=== PATIENT | female | born 1995 | race Caucasian/White ===

== ENCOUNTER 2018-12-29 12:30 | Inpatient (IN) | payer OTHER ==
[~2018-12-29] VITALS: Ht 175.3 cm; Wt 92.7 kg
[2018-12-29] MEDS ORDERED: SOD CHLORIDE 0.9% 1,000 ML IV STA (12:52)
[2018-12-29] MEDS ORDERED: SOD CHLORIDE 0.9% 0 ML IV ONE (13:21)
[2018-12-29] MEDS ORDERED: ACETAMINOPHEN 325 MG TAB PO PRN (14:00)
[2018-12-29] MEDS ORDERED: ONDANSETRON 4 MG INJ IV PRN (14:00)
--- NOTE | 2018-12-29 15:34 | ERD ---
ER Documentation Chief Complaint Chief Complaint near syncope while at work @ 1200, dizziness; heavy menstrual cycle HPI Patient is a 23-year-old female with asthma and fibroids who presents after she passed out at work. She said that she passed out around 12 PM. She is having a heavy periods and she said that it came early as her last mental period was December 04-. She said that yesterday she was in the shower and had about an hour of continuous bleeding. Upon review of old medical records this is the patient's fifth visit to the ER since 2006. She does not currently have a primary doctor and does not have a medical record librarians teacher. ROS All systems reviewed and are negative except as per history of present illness. Medications Home Meds No Active Prescriptions or Reported Meds Allergies Allergies: Coded Allergies: No Known Allergy (Unverified , 12/29/18) PMhx/Soc History of Surgery: Yes (APPENDECTOMY) Anesthesia Reaction: No Hx Neurological Disorder: No Hx Respiratory Disorders: Yes (ASTHMA) Hx Cardiac Disorders: No Hx Psychiatric Problems: No Hx Miscellaneous Medical Probl: No (Fibroids) Hx Alcohol Use: No Hx Substance Use: No Hx Tobacco Use: No Smoking Status: Never smoker FmHx Family History: No diabetes Physical Exam Vitals Vital Signs Date Temp Pulse Resp B/P (MAP) Pulse Ox O2 O2 Flow FiO2 Time Delivery Rate 12/29/18 98.5 79 17 107/61 100 Room Air 14:50 (76) 12/29/18 98.5 88 16 105/71 100 Room Air 14:35 (82) 12/29/18 98.2 82 22 101/69 100 Room Air 14:05 (80) 12/29/18 98.0 83 20 113/72 100 Room Air 13:00 (86) 12/29/18 98.0 89 20 138/80 100 12:40 (99) Physical Exam Const: Moderate distress Head: Atraumatic Eyes: Normal Conjunctiva ENT: Normal External Ears, Nose and Mouth. Neck: Full range of motion. No meningismus. Resp: Clear to auscultation bilaterally Cardio: Regular rate and rhythm, no murmurs Abd: Soft, non tender, non distended. Normal bowel sounds Skin: Pale skin Back: No midline or flank tenderness Ext: No cyanosis, or edema Neur: Awake and alert Psych: Normal Mood and Affect Result Diagram: 12/29/18 1258 12/29/18 1258 Results 24 hrs Laboratory Tests Test 12/29/18 12:58 12/29/18 13:19 White Blood Count 7.7 10^3/ul Red Blood Count 3.13 10^6/ul Hemoglobin 5.4 g/dl Hematocrit 20.5 % Mean Corpuscular Volume 65.5 fl Mean Corpuscular Hemoglobin 17.3 pg Mean Corpuscular Hemoglobin Concent 26.3 g/dl Red Cell Distribution Width 19.9 % Platelet Count 324 10^3/UL Mean Platelet Volume 11.0 fl Immature Granulocytes % 0.400 % Neutrophils % % Segmented Neutrophils % (Manual) 54 % Lymphocytes % % Lymphocytes % (Manual) 40 % Monocytes % % Monocytes % (Manual) 3 % Eosinophils % % Eosinophils % (Manual) 2 % Basophils % % Basophils % (Manual) 1 % Nucleated Red Blood Cells % 0.0 /100WBC Immature Granulocytes # 0.030 10^3/ul Neutrophils # 10^3/ul Lymphocytes (Manual) 3.0 10^3/ul Lymphocytes # 10^3/ul Monocytes # 10^3/ul Monocytes # (Manual) 0.2 10^3/ul Eosinophils # 10^3/ul Basophils # 10^3/ul Basophils # (Manual) 0.0 10^3/ul Nucleated Red Blood Cells # 10^3/ul Platelet Estimate NORMAL Polychromasia 3+ Hypochromasia 3+ Poikilocytosis 2+ Anisocytosis 3+ Microcytosis 3+ Tear Drop Cells 1+ Ovalocytes 2+ Elliptocytes 2+ Sodium Level 140 mmol/L Potassium Level 3.7 mmol/L Chloride Level 107 mmol/L Carbon Dioxide Level 24 mmol/L Anion Gap 9 Blood Urea Nitrogen 13 mg/dl Creatinine 0.66 mg/dl Est Glomerular Filtrat Rate mL/min > 60 mL/min Glucose Level 96 mg/dl Calcium Level 9.3 mg/dl Troponin I < 0.012 ng/ml Serum HCG, Qualitative NEGATIVE Bedside Glucose 95 mg/dL Current Medications Medications Dose Sig/Marciano Start Time Status Last (Trade) Ordered Route PRN Stop Time Admin Dose Reason Admin Sodium 1,000 ml @ Q1H STAT 12/29/18 DC 12/29/18 Chloride 1,000 mls/hr IV 12:52 12/29/18 13:06 13:51 Sodium 0 ml @ 0 Q0M ONCE 12/29/18 DC Chloride mls/hr IV 13:21 12/29/18 13:22 Ondansetron 4 mg ER BRIDGE 12/29/18 HCl (Zofran PRN IV 14:00 12/30/18 Inj) NAUSEA/VOMITI 13:59 NG 650 mg ER BRIDGE 12/29/18 Acetaminophen PRN PO 14:00 12/30/18 (Tylenol .MILD PAIN 13:59 Tab) 1-3 OR TEMP Procedures/MDM EKG read by me: Rate/Rhythm: Regular rate and rhythm at a normal rate Intervals: Normal Impression: No evidence of ischemia or arrhythmia Patient is a 23-year-old female who presents with syncope. She was found to have acute anemia with a hemoglobin of 5.4 and will be transfused 2 units of packed red blood cells and given 1 L of normal saline for fluid resuscitation. I believe this is likely dysfunctional uterine bleeding with fibroids. The pa tient is not I doubt or ectopic . Other laboratory studies are basically normal. The patient will be admitted to Dr. Rodriguez from gynecology who is the medical record librarians teacher corporate responsibility officer. She will be admitted to a telemetry bed for syncope. Critical Care: Time: 35 minutes excluding all billable procedures. Treatments/Evaluations: Close monitoring and treatment of unstable vital signs, cardiorespiratory, and neurologic status, while maintaining tight balance of fluid, respiratory, and cardiac interventions. Departure Diagnosis: Primary Impression: Anemia Anemia type: unspecified type Qualified Codes: D64.9 - Anemia, unspecified Additional Impressions: Dysfunctional uterine bleeding Dizziness Condition: Serious RAEGAN RAE MD Dec 29, 2018 15:34
[2018-12-29] MEDS ORDERED: ONDANSETRON 4 MG INJ IV STA (15:59)
[2018-12-29] MEDS ORDERED: OXYCODONE/ACETAMINOPHEN (5/325) TAB PO PRN (23:30)
[2018-12-29] MEDS ORDERED: IBUPROFEN 600 MG TAB PO PRN (23:30)
[2018-12-29 23:40] VITALS: Ht 175.3 cm; Wt 92.7 kg
[2018-12-29] MEDS: OXYCODONE/ACETAMINOPHEN (5/325) TAB PO PRN (23:42)
[2018-12-30] MEDS ORDERED: ONDANSETRON 4 MG INJ IV PRN
[2018-12-30 00:06] VITALS: BP 100/59; RESP 20
--- NOTE | 2018-12-30 01:52 | CONS ---
Assessment/Plan Assessment/Plan Assessment/Plan (Daily) 1.Abnormal Uterine Bleeding 2.Fibroids 3.Severe Anemia Transfuse PRBCs Pain meds as needed Consultation Date/Type/Reason Admit Date/Time Dec 29, 2018 at 13:47 Date of Consultation: Dec 30, 2018 Type of Consult Gynecology Reason for Consultation Abnormal Uterine Bleeding Fibroids Date/Time of Note DATE: 12/30/18 TIME: 01:50 Hx of Present Illness Patient is a 23-year-old female with known fibroids since Aug 2018 presents after passing out at work around 12 PM. LMP December 04, 2018 She said that yesterday she was in the shower and had about an hour of co ntinuous bleeding. She reports hx of heavy periods. She does not currently have a primary doctor and does not have a internal corrosion specialist. Constitutional: no complaints, improved Eyes: no complaints ENT: no complaints Respiratory: no complaints Cardiovascular: no complaints Gastrointestinal: no complaints, pain (Abdominal and pelvic pain) Genitourinary: no complaints Musculoskeletal: no complaints Skin: no complaints Neurologic: no complaints Endocrine: no complaints Lymphatic: no complaints Psychological: no complaints, nl mood/affect Immunologic: no complaints Past Medical History Medical History: other (Asthma) Home Meds No Active Prescriptions or Reported Meds Medications Current Medications Ondansetron HCl (Zofran Inj) 4 mg ER BRIDGE PRN IV NAUSEA/VOMITING; Start 12/29/18 at 14:00; Stop 12/30/18 at 13:59 Acetaminophen (Tylenol Tab) 650 mg ER BRIDGE PRN PO .MILD PAIN 1-3 OR TEMP; Start 12/29/18 at 14:00; Stop 12/30/18 at 13:59 Oxycodone/ Acetaminophen (Percocet (5/ 325)) 2 tab Q6H PRN PO PAIN LEVEL 7-10 Last administered on 12/29/18at 23:42; Admin Dose 2 TAB; Start 12/29/18 at 23:30 Oxycodone/ Acetaminophen (Percocet (5/ 325)) 1 tab Q6H PRN PO MODERATE PAIN LEVEL 4-6; Start 12/29/18 at 23:30 Ibuprofen (Motrin) 600 mg Q6H PRN PO MILD PAIN LEVEL 1-3; Start 12/29/18 at 23:30 Ondansetron HCl (Zofran Inj) 4 mg Q6H PRN IV NAUSEA AND/OR VOMITING; Start 12/30/18 at 00:00 Allergies: Coded Allergies: No Known Allergy (Unverified , 12/29/18) Past Surgical History Past Surgical Hx: appendectomy Family History Significant Family History: no pertinent family hx Social History Alcohol Use: none Smoking Status: Never smoker Drug Use: none Exam/Review of Systems Exam Vitals Vital Signs Date Temp Pulse Resp B/P (MAP) Pulse Ox O2 O2 Flow FiO2 Time Delivery Rate 12/30/18 99.4 20 100/59 99 00:06 (73) 12/29/18 78 Room Air 19:16 Intake and Output 12/29/18 12/29/18 12/30/18 1515:00 23:00 07:00 IntakeIntake Total 700 ml BalanceBalance 700 ml Constitutional: alert, oriented, well developed Psych: no complaints, nl mood/affect Head: normocephalic, atraumatic Eyes: nl conjunctiva, EOMI, nl lids, nl sclera, PERRL ENMT: nl external ears & nose, nl lips & teeth, nl nasal mucosa & septum Neck: supple, non-tender Respiratory: clear to auscultation, normal air movement Cardiovascular: regular rate and rhythm, nl pulses Gastrointestinal: soft, nl liver, spleen, non-tender Genitourinary - Female: other (heavy vaginal bleeding ) Musculoskeletal: nl extremities to inspection, nl gait and stance Extremities: normal pulses Neurological: SUPERVISOR INCISING II-XII intact, nl mental status, nl speech, nl strength Skin: nl turgor; No rash or lesions Lymph: nl lymph nodes Results Result Diagram: 12/30/18 0038 12/29/18 1258 Results 24hrs Laboratory Tests Test 12/29/18 12:58 12/29/18 13:19 12/30/18 00:38 White Blood Count 7.7 7.5 Red Blood Count 3.13 L 3.23 L Hemoglobin 5.4 *L 6.5 #*L Hematocrit 20.5 L 22.6 L Mean Corpuscular Volume 65.5 L 70.0 L Mean Corpuscular Hemoglobin 17.3 L 20.1 L Mean Corpuscular Hemoglobin Concent 26.3 L 28.8 L Red Cell Distribution Width 19.9 H 22.6 H Platelet Count 324 267 Mean Platelet Volume 11.0 H Immature Granulocytes % 0.400 0.500 H Neutrophils % Segmented Neutrophils % (Manual) 54 Lymphocytes % Lymphocytes % (Manual) 40 Monocytes % Monocytes % (Manual) 3 Eosinophils % Eosinophils % (Manual) 2 Basophils % Basophils % (Manual) 1 Nucleated Red Blood Cells % 0.0 0.0 Immature Granulocytes # 0.030 0.040 H Neutrophils # Lymphocytes (Manual) 3.0 H Lymphocytes # Monocytes # Monocytes # (Manual) 0.2 L Eosinophils # Basophils # Basophils # (Manual) 0.0 Nucleated Red Blood Cells # Platelet Estimate NORMAL Polychromasia 3+ Hypochromasia 3+ Poikilocytosis 2+ Anisocytosis 3+ Microcytosis 3+ Tear Drop Cells 1+ Ovalocytes 2+ Elliptocytes 2+ Sodium Level 140 Potassium Level 3.7 Chloride Level 107 Carbon Dioxide Level 24 Anion Gap 9 Blood Urea Nitrogen 13 Creatinine 0.66 Est Glomerular Filtrat Rate mL/min > 60 Glucose Level 96 Calcium Level 9.3 Troponin I < 0.012 Serum HCG, Qualitative NEGATIVE Bedside Glucose 95 Imaging Imaging PELVIC ULTRASOUND IMPRESSION: 1. Enlarged heterogeneous uterus containing multiple fibroids the largest measuring 8.8 x 7.1 cm. 2. Left ovarian cyst measuring 1.7 x 1.2 cm. 3. Small amount of free fluid in the right adnexa. 4. No evidence of ovarian torsion. Medications Medication Current Medications Ondansetron HCl (Zofran Inj) 4 mg ER BRIDGE PRN IV NAUSEA/VOMITING; Start 12/29/18 at 14:00; Stop 12/30/18 at 13:59 Acetaminophen (Tylenol Tab) 650 mg ER BRIDGE PRN PO .MILD PAIN 1-3 OR TEMP; Start 12/29/18 at 14:00; Stop 12/30/18 at 13:59 Oxycodone/ Acetaminophen (Percocet (5/ 325)) 2 tab Q6H PRN PO PAIN LEVEL 7-10 Last administered on 12/29/18at 23:42; Admin Dose 2 TAB; Start 12/29/18 at 23:30 Oxycodone/ Acetaminophen (Percocet (5/ 325)) 1 tab Q6H PRN PO MODERATE PAIN LEVEL 4-6; Start 12/29/18 at 23:30 Ibuprofen (Motrin) 600 mg Q6H PRN PO MILD PAIN LEVEL 1-3; Start 12/29/18 at 23:30 Ondansetron HCl (Zofran Inj) 4 mg Q6H PRN IV NAUSEA AND/OR VOMITING; Start 12/30/18 at 00:00 ARCHIE DELAROSA MD Dec 30, 2018 01:52
[2018-12-30 02:37] VITALS: BP 98/56
[2018-12-30] MEDS ORDERED: DIPHENHYDRAMINE 25 MG CAP ONE (03:22)
[2018-12-30] MEDS ORDERED: DIPHENHYDRAMINE 50 MG CAP PO ONE (03:30)
[2018-12-30] MEDS ORDERED: ACETAMINOPHEN 325 MG TAB PO ONE ×2 (03:30→05:00)
[2018-12-30] MEDS: LACTATED RINGER'S 1,000 ML IV SCH ×3 (03:30→14:45)
[2018-12-30] MEDS ORDERED: DIPHENHYDRAMINE 25 MG CAP PO ONE (05:00)
[2018-12-30 07:40] VITALS: BP 93/55; PULSE 71; RESP 18
[2018-12-30 14:15] VITALS: BP 102/66; PULSE 69; RESP 16
--- NOTE | 2018-12-30 17:50 | QN ---
Documentation Comment HD #1 for severe anemia and DUB due to multiple fibroids. Pt reports that the last Hgb of 6.5 was only after the 2nd unit of blood, not 4 units. She has had her period since 12/26 and it is slowing down a lot but she is still bleeding but no more clots. She feels better and gets up to void without a problem. Is NPO. T=98.2 BP 102/66 Abdomen soft, NT, no masses palpable. Hgb 5.4 on admit and 6.5 after 2 units of PRBC's P: Recheck the CBC tonight. Pt may eat a regular diet. Pt had an appt with lace finisher 12/28 but had to reschedule due to the heaviness of her periods. Told her she needs to get in to see her NELA as getting blood transfusions is NOT the answer to the problem. She should have a plan of action NELA to try to keep the next period from doing the same thing. Discussed a myomectomy vs medical therapy e.g. DepoProvera. MICHOACANO GARCIA MD Dec 30, 2018 17:50
[2018-12-30 20:00] VITALS: BP 109/56; PULSE 70; RESP 18
[2018-12-30] MEDS: OXYCODONE/ACETAMINOPHEN (5/325) TAB PO PRN (20:13)
[2018-12-31] MEDS: LACTATED RINGER'S 1,000 ML IV SCH ×4 (01:53→20:51)
[2018-12-31 02:00] VITALS: BP 95/52; PULSE 60; RESP 18
[2018-12-31 08:12] VITALS: BP 99/56; PULSE 62; RESP 17
[2018-12-31 14:20] VITALS: BP 110/69; PULSE 66; RESP 17
--- NOTE | 2018-12-31 18:31 | QN ---
Documentation Comment patient is stable afebrile No VB at this time VS stable Gen NAD Abd soft NT ND Genitalia No blood at perineum --->Possible discharge home tomorrow and follow up as outpatient DENNIS WHIPPLE M.D. Dec 31, 2018 18:31
[2018-12-31 20:00] VITALS: BP 111/63; PULSE 80; RESP 18
[2018-12-31] MEDS: OXYCODONE/ACETAMINOPHEN (5/325) TAB PO PRN (21:30)
[2019-01-01 02:00] VITALS: BP_SYST 115; BP_SYST 95; BP_DIAS 49; BP_DIAS 70; PULSE 66; RESP 18
[2019-01-01] MEDS: LACTATED RINGER'S 1,000 ML IV SCH ×2 (06:42→17:42)
[2019-01-01 08:05] VITALS: BP 88/52; PULSE 66; RESP 18
--- NOTE | 2019-01-01 11:35 | QN ---
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 Jan 01, 2019 11:35
--- NOTE | 2019-01-01 11:37 | DS ---
Date/Time of Note Date/Time of Note DATE: 01/01/19 TIME: 11:37 Discharge Summary Admission/Discharge Info Admit Date/Time Dec 29, 2018 at 13:47 Discharge Date/Time 01/01/2019 Discharge Diagnosis Anemia,Fibroid uterus Patient Condition: Good Hospital Course uneventful Home Meds No Active Prescriptions or Reported Meds Primary Care Provider Care Physician No Primary DENNIS WHIPPLE M.D. Jan 01, 2019 11:37
[2019-01-01 11:40] VITALS: BP 119/62; PULSE 73; RESP 18
[2019-01-01] MEDS: OXYCODONE/ACETAMINOPHEN (5/325) TAB PO PRN (11:41)
== END 2019-01-01 18:33 | disposition home or self-care (01) | DRG 812 ==
LOC: E/R 12:30 → PP2 13:47 → EDBEDREQSVC 19:35 → EDBEDREQ 19:35 → EDBEDREQTM 19:35
PROVIDERS: ADMIT Obstetrics & Gynecology; ATTEND Obstetrics & Gynecology
PROC: 30233N1 Transfusion of Nonautologous Red Blood Cells into Peripheral Vein, Percutaneous Approach (ICD-10-PCS; principal; 2018-12-29)
DX: D64.9 Anemia, unspecified (principal); N93.8 Other specified abnormal uterine and vaginal bleeding; J45.909 Unspecified asthma, uncomplicated; D25.9 Leiomyoma of uterus, unspecified
CPT/HCPCS: 36415; 36430; 76856; 80048; 82962; 84484; 84703; 85025; 86850; 86900; 86901; 86920; 93005; J2405; J7030; J7040; J7120; P9016

== ENCOUNTER 2019-01-04 20:14 | Inpatient (IN) | payer OTHER ==
[~2019-01-04] VITALS: Ht 175.3 cm; Wt 90.0 kg
[2019-01-04] MEDS ORDERED: morphine 4 MG/ML VIAL IV STA (21:36)
[2019-01-04] MEDS ORDERED: ONDANSETRON 4 MG INJ IV STA (21:36)
[2019-01-04] MEDS ORDERED: SOD CHLORIDE 0.9% 0 ML IV ONE (22:44)
--- NOTE | 2019-01-04 23:12 | ERD ---
ER Documentation Chief Complaint Chief Complaint VAGINAL BLEEDING FOR THE PAST WEEK NOT . INTERMITTENT ABD PAIN HPI 23-year-old female with recent hospitalization secondary to menorrhagia, anemia requiring transfusion and fibroid uterus. The patient presents with persistent vaginal bleeding. She is now soaking 3 pads per hour. She describes generalized weakness and lightheadedness. No chest pain and no shortness of br eath. Mild abdominal cramping is noted. ROS All systems reviewed and are negative except as per history of present illness. Medications Home Meds No Active Prescriptions or Reported Meds Allergies Allergies: Coded Allergies: No Known Allergy (Unverified , 12/29/18) PMhx/Soc History of Surgery: Yes (Appendectomy at 4y/o) Anesthesia Reaction: No Hx Neurological Disorder: No Hx Respiratory Disorders: Yes (Asthma) Hx Cardiac Disorders: No Hx Psychiatric Problems: No Hx Miscellaneous Medical Probl: Yes (uterine fibroid) Hx Alcohol Use: No Hx Substance Use: No Hx Tobacco Use: No Smoking Status: Never smoker FmHx Family History: No diabetes Physical Exam Vitals Vital Signs Date Temp Pulse Resp B/P (MAP) Pulse Ox O2 O2 Flow FiO2 Time Delivery Rate 01/04/19 74 16 117/59 100 Room Air 21:35 (78) 01/04/19 98.5 85 18 115/58 99 20:25 (77) Physical Exam General: Well developed, well nourished, no acute distress, pallor noted Head: Normocephalic, atraumatic. Eyes: Pupils equally reactive, EOM intact ENT: Moist mucous membranes Neck: Supple, no lymphadenopathy Respiratory: Lungs clear bilaterally, no distress Cardiovascular: RRR, no murmurs, rubs, or gallops Abdominal: Soft, non-tender, non-distended, no peritoneal signs : Deferred MSK: No edema, no unilateral swelling, 5/5 strength Neurologic: Alert and oriented, moving all extremities, normal speech, no focal weakness, no cerebellar signs Skin: No rash Psych: Normal mood Result Diagram: 01/04/19215001/04/192150 Results 24 hrs Laboratory Tests Test 01/04/19 21:51 01/04/19 22:00 White Blood Count 8.7 10^3/ul Red Blood Count 2.72 10^6/ul Hemoglobin 6.0 g/dl Hematocrit 20.7 % Mean Corpuscular Volume 76.1 fl Mean Corpuscular Hemoglobin 22.1 pg Mean Corpuscular Hemoglobin Concent 29.0 g/dl Red Cell Distribution Width 24.8 % Platelet Count 272 10^3/UL Mean Platelet Volume 11.0 fl Immature Granulocytes % 0.500 % Neutrophils % % Lymphocytes % % Monocytes % % Eosinophils % % Basophils % % Nucleated Red Blood Cells % 0.0 /100WBC Immature Granulocytes # 0.040 10^3/ul Neutrophils # 10^3/ul Lymphocytes # 10^3/ul Monocytes # 10^3/ul Eosinophils # 10^3/ul Basophils # 10^3/ul Nucleated Red Blood Cells # 10^3/ul Prothrombin Time 15.0 Sec Prothrombin Time Ratio 1.2 INR International Normalized Ratio 1.17 Activated Partial Thromboplast Time 30.2 Sec Sodium Level 140 mmol/L Potassium Level 4.3 mmol/L Chloride Level 106 mmol/L Carbon Dioxide Level 26 mmol/L Anion Gap 8 Blood Urea Nitrogen 15 mg/dl Creatinine 0.76 mg/dl Est Glomerular Filtrat Rate mL/min > 60 mL/min Glucose Level 99 mg/dl Calcium Level 8.9 mg/dl POC Beta HCG, Qualitative NEGATIVE Current Medications Medications Dose Sig/Marciano Start Time Status Last (Trade) Ordered Route PRN Stop Time Admin Dose Reason Admin Morphine 4 mg ONCE STAT 01/04/19 DC 01/04/19 Sulfate IV 21:36 22:07 (morphine) 01/04/19 21:37 Ondansetron 4 mg ONCE STAT 01/04/19 DC 01/04/19 HCl (Zofran IV 21:36 22:07 Inj) 01/04/19 21:37 Sodium 0 ml @ 0 Q0M ONCE 01/04/19 DC Chloride mls/hr IV 22:44 01/04/19 22:45 Procedures/MDM LAB INTERPRETATION: I reviewed the laboratory testing and it shows hemoglobin of 6 MEDICAL DECISION MAKING: Patient presents with likely symptomatic anemia secondary to menorrhagia. The patient was currently initiated on oral contraceptives but has persistent bleeding. Patient likely warrants inpatient hospitalization for further monitoring, blood transfusion. ER COURSE: * I discussed with the patient and/or family the risks, benefits, alternatives of blood transfusion. This includes allergic reaction and infections including HIV and hepatitis. The patient and/or family were able to verbalize these risks, stated understanding. A document has been signed and placed in the chart. * 2 units of packed red blood cells have been ordered for the patient. She is hemodynamically stable. Pain well controlled. * Dr. Rodriguez, on-call for MOTOR VEHICLE TECHNICIAN was notified of admission. CONSULTATION: [None] DISPOSITION PLAN: Accepting care team and consultations: I discussed the current laboratory data, diagnostic imaging and emergency care provided. Admitting team: Dr. Rodriguez Admitting team indication: Insurance directed Departure Diagnosis: Primary Impression: Menorrhagia Menorrahagia type: with regular cycle Qualified Codes: N92.0 - Excessive and frequent menstruation with regular cycle Additional Impressions: Symptomatic anemia Uterine fibroid Uterine leiomyoma location: unspecified location Qualified Codes: D25.9 - Leiomyoma of uterus, unspecified Condition: Stable GILBERT MINA MD Jan 04, 2019 23:12
[2019-01-04] MEDS ORDERED: ONDANSETRON 4 MG INJ IV PRN (23:30)
[2019-01-04] MEDS ORDERED: ACETAMINOPHEN 325 MG TAB PO PRN (23:30)
[2019-01-05 01:45] VITALS: BP 108/54; PULSE 89; RESP 20
[2019-01-05 01:56] VITALS: Ht 175.3 cm; Wt 90.0 kg
[2019-01-05 07:49] VITALS: BP 112/60; PULSE 67; RESP 18
--- NOTE | 2019-01-05 12:37 | HP ---
Date/Time of Note Date/Time of Note DATE: 01/05/19 TIME: 12:14 Assessment/Plan VTE Prophylaxis Risk score (from Nsg)>0 risk: 0 SCD applied (from Nsg): No SCD contraindicated: other Pharmacological prophylaxis: other Lines/Catheters IV Catheter Type (from Nrsg): Peripheral IV Urinary Cath still in place: No Assessment/Plan Assessment/Plan A menometrorrhagia secondary uterine fibroids severe anemia P blood transfusion f/u by her ADMIRALTY LAWYER on 01/09/19 she has appointment recommend for poss myomectmy even optional but considering her n ulligravida status, not recommend,as first choice most likely progesterone injection or GnRH an alogs . will discharge home after 2more units of RBC transfusion Result Diagram: 01/05/1982101/04/191 Results 24hrs Laboratory Tests Test 01/04/19 21:51 01/04/19 22:00 01/05/19 08:22 White Blood Count 8.7 # Red Blood Count 2.72 #L Hemoglobin 6.0 #*L 7.8 #L Hematocrit 20.7 #L 24.9 #L Mean Corpuscular Volume 76.1 L Mean Corpuscular Hemoglobin 22.1 L Mean Corpuscular Hemoglobin Concent 29.0 L Red Cell Distribution Width 24.8 H Platelet Count 272 Mean Platelet Volume 11.0 H Immature Granulocytes % 0.500 H Neutrophils % Lymphocytes % Monocytes % Eosinophils % Basophils % Nucleated Red Blood Cells % 0.0 Immature Granulocytes # 0.040 H Neutrophils # Lymphocytes # Monocytes # Eosinophils # Basophils # Nucleated Red Blood Cells # Prothrombin Time 15.0 H Prothrombin Time Ratio 1.2 INR International Normalized Ratio 1.17 Activated Partial Thromboplast Time 30.2 Sodium Level 140 Potassium Level 4.3 Chloride Level 106 Carbon Dioxide Level 26 Anion Gap 8 Blood Urea Nitrogen 15 Creatinine 0.76 Est Glomerular Filtrat Rate mL/min > 60 Glucose Level 99 Calcium Level 8.9 POC Beta HCG, Qualitative NEGATIVE HPI/ROS Admit Date/Time Admit Date/Time Jan 04, 2019 at 23:22 Hx of Present Illness 23y.o nulligravida presents ED again for heavy vaginal bleeding after being discharged on 12/30/18 by our colleague who recommended to be f/u by her ADMIRALTY LAWYER .after blood transfusion. But patient returned to ED with heavy vaginal bleeding before she visited her ADMIRALTY LAWYER which suppose to be on 01/09/19. 2 units of RBC ordered by ER and sent to floor to be f/ued ROS vaginal bleeding with cramping Constitutional: no complaints, improved Eyes: no complaints ENT: no complaints Respiratory: no complaints Cardiovascular: no complaints Gastrointestinal: no complaints Genitourinary: bleeding Musculoskeletal: back pain Skin: no complaints Neurologic: no complaints Endocrine: no complaints Lymphatic: no complaints Psychological: no complaints PMH/Family/Social Past Medical History Medical History: no pertinent history, other (asthma) Medications Current Medications Ondansetron HCl (Zofran Inj) 4 mg BRIDGE ORDER PRN IV NAUSEA/VOMITING; Start 01/04/19 at 23:30; Stop 01/05/19 at 23:29 Acetaminophen (Tylenol Tab) 650 mg ER BRIDGE PRN PO .MILD PAIN 1-3 OR TEMP Last administered on 01/05/19at 11:36; Admin Dose 650 MG; Start 01/04/19 at 23:30; Stop 01/05/19 at 23:29 Coded Allergies: No Known Allergy (Unverified , 12/29/18) Past Surgical History Past Surgical Hx: appendectomy Family History Significant Family History: no pertinent family hx Social History Alcohol Use: none Smoking Status: Never smoker Drug Use: none Exam/Review of Systems Vital Signs Vitals Vital Signs Date Temp Pulse Resp B/P (MAP) Pulse Ox O2 O2 Flow FiO2 Time Delivery Rate 01/05/19 98.5 67 18 112/60 99 Room Air 07:49 (77) Intake and Output 01/04/19 01/04/19 01/05/19 1515:00 23:00 07:00 IntakeIntake Total 700 ml BalanceBalance 700 ml Exam Constitutional: alert, oriented, well developed Psych: no complaints, nl mood/affect Head: normocephalic, atraumatic Eyes: other (pale conjunctiva) ENMT: nl external ears & nose, nl lips & teeth, nl nasal mucosa & septum Neck: supple, non-tender Respiratory: clear to auscultation, normal air movement Cardiovascular: regular rate and rhythm, nl pulses Gastrointestinal: soft, nl liver, spleen, non-tender Genitourinary - Female: uterus (uterine fibroid intramural distorting the cavity per u/s on last visit on12/29/18) GEORGE MOORE MD Jan 05, 2019 12:25
[2019-01-05 13:36] VITALS: BP 107/58; PULSE 77; RESP 16
[2019-01-05] MEDS ORDERED: morphine 4 MG/ML VIAL IV STA (15:23)
[2019-01-05 20:00] VITALS: BP 101/60; RESP 18
[2019-01-05] MEDS ORDERED: OXYCODONE/ACETAMINOPHEN (5/325) TAB PO PRN (21:30)
[2019-01-05] MEDS ORDERED: IBUPROFEN 600 MG TAB PO PRN (21:30)
[2019-01-05] MEDS: OXYCODONE/ACETAMINOPHEN (5/325) TAB PO PRN (21:34)
[2019-01-06 02:13] VITALS: BP 95/61; PULSE 61; RESP 16
[2019-01-06] MEDS: OXYCODONE/ACETAMINOPHEN (5/325) TAB PO PRN ×2 (09:18→16:10)
[2019-01-06] MEDS ORDERED: MEDROXYPROGESTERONE 150 MG INJ SYG IM ONE (18:00)
[2019-01-06 19:50] VITALS: BP 104/58; PULSE 62; RESP 19
--- NOTE | 2019-01-06 21:28 | PD.PPDC ---
MANUFACTURING TEAM MEMBER Discharge Instruction Diagnosis [id number] Final Diagnosis: [id number] uterine fibroids ,menometrorrhagia,anemia Condition [id number] Patient Condition: [id number] Stable Diet [id number] Diet: [id number] Resume Regular Diet Activity/Restrictions [id number] Restrictions: [id number] No Sexual Activity Follow-up Follow-up with Physician: 2, Day/Days Provider Information: with her GEORGE Guthrie MD Jan 06, 2019 21:28
== END 2019-01-06 22:47 | disposition home or self-care (01) | DRG 761 ==
LOC: E/R 20:14 → 5EC 23:22
PROVIDERS: ADMIT Obstetrics & Gynecology; ATTEND Obstetrics & Gynecology
PROC: 30233N1 Transfusion of Nonautologous Red Blood Cells into Peripheral Vein, Percutaneous Approach (ICD-10-PCS; principal; 2019-01-05)
DX: D25.9 Leiomyoma of uterus, unspecified (principal); N92.0 Excessive and frequent menstruation with regular cycle; D64.9 Anemia, unspecified
CPT/HCPCS: 36430; 71046; 80048; 81025; 85014; 85018; 85025; 85610; 85730; 86850; 86900; 86901; 86920; 96374; 96375; J1050; J2270; J2405; J7040; P9016

== ENCOUNTER 2019-03-04 13:48 | Emergency (ER) | payer OTHER ==
[~2019-03-04] VITALS: Ht 175.3 cm; Wt 89.0 kg
[2019-03-04 13:53] VITALS: Ht 175.3 cm; Wt 89.0 kg
[2019-03-04] MEDS ORDERED: morphine 4 MG/ML VIAL IV STA (14:16)
[2019-03-04] MEDS ORDERED: ONDANSETRON 4 MG INJ IV STA (14:16)
[2019-03-04] MEDS ORDERED: SOD CHLORIDE 0.9% 1,000 ML IV STA (14:16)
[2019-03-04 17:01] VITALS: BP 111/69; PULSE 80; RESP 18
--- NOTE | 2019-03-04 19:54 | ERD ---
ER Documentation Chief Complaint Chief Complaint SEVERE VAGINAL BLEEDING LAST FEW DAYS, HX OF FIBROIDS HPI 23 year old F with hx of uterine fibroids presents with heavy vaginal bleeding x1 day. She was admitted here on month ago for anemia secondary to menorrhagia. She states she was given Depo shot at that time to help control her bleeding. States her bleeding had improved but symptoms started again today. She reports soaking about 3 pads/hour. She also has mild suprapubic pain. Denies associated headache, nausea, vomiting, dizziness or lightheadedness. She has seen an OBGYN who recommended monthly Depo shots versus myomectomy which pt is still considering. LNMP was 02/03/2019. ROS All systems reviewed and are negative except as per history of present illness. Medications Home Meds No Active Prescriptions or Reported Meds Allergies Allergies: Coded Allergies: No Known Allergy (Unverified , 12/29/18) PMhx/Soc History of Surgery: Yes (Appendectomy) Anesthesia Reaction: No Hx Neurological Disorder: No Hx Respiratory Disorders: No Hx Cardiac Disorders: No Hx Psychiatric Problems: No Hx Miscellaneous Medical Probl: No Hx Alcohol Use: No Hx Substance Use: No Hx Tobacco Use: No Smoking Status: Never smoker Physical Exam Vitals Vital Signs Date Temp Pulse Resp B/P (MAP) Pulse Ox O2 O2 Flow FiO2 Time Delivery Rate 03/04/19 98.0 80 18 111/69 100 Room Air 17:01 (83) 03/04/19 98.0 92 18 129/79 100 13:53 (96) Physical Exam Const: No acute distress Head: Atraumatic Eyes: Normal Conjunctiva ENT: Normal External Ears, Nose and Mouth. Neck: Full range of motion. No meningismus. Resp: Clear to auscultation bilaterally Cardio: Regular rate and rhythm, no murmurs Abd: Soft, non tender, non distended. Normal bowel sounds Skin: No petechiae or rashes Back: No midline or flank tenderness Ext: No cyanosis, or edema Neur: Awake and alert Psych: Normal Mood and Affect Result Diagram: 03/04/19 1446 Results 24 hrs Laboratory Tests Test 03/04/19 14:46 White Blood Count 4.4 10^3/ul Red Blood Count 3.60 10^6/ul Hemoglobin 10.1 g/dl Hematocrit 31.1 % Mean Corpuscular Volume 86.4 fl Mean Corpuscular Hemoglobin 28.1 pg Mean Corpuscular Hemoglobin Concent 32.5 g/dl Red Cell Distribution Width 18.1 % Platelet Count 254 10^3/UL Mean Platelet Volume 10.7 fl Immature Granulocytes % 0.200 % Neutrophils % 60.1 % Lymphocytes % 30.4 % Monocytes % 7.9 % Eosinophils % 0.7 % Basophils % 0.7 % Nucleated Red Blood Cells % 0.0 /100WBC Immature Granulocytes # 0.010 10^3/ul Neutrophils # 2.7 10^3/ul Lymphocytes # 1.4 10^3/ul Monocytes # 0.4 10^3/ul Eosinophils # 0.0 10^3/ul Basophils # 0.0 10^3/ul Nucleated Red Blood Cells # 0.0 10^3/ul Beta HCG, Quantitative < 2.4 mIU/ml Current Medications Medications Dose Sig/Marciano Start Time Status Last (Trade) Ordered Route PRN Stop Time Admin Dose Reason Admin Sodium 1,000 ml @ Q1H STAT 03/04/19 DC 03/04/19 Chloride 1,000 mls/hr IV 14:16 03/04/19 14:45 15:15 Morphine 4 mg ONCE STAT 03/04/19 DC 03/04/19 Sulfate IV 14:16 03/04/19 14:45 (morphine) 14:17 Ondansetron 4 mg ONCE STAT 03/04/19 DC 03/04/19 HCl (Zofran IV 14:16 03/04/19 14:45 Inj) 14:17 Procedures/MDM LABS & DIAGNOSTIC IMAGING: CBC: H/H of 07/26, no e/o of systemic infection or severe anemia beta hcg: negative ED COURSE: The patient was given IVFs, Zofran, morphine The medication was well tolerated and the patient had market improvement in symptoms. The patient remained stable throughout ED course. MEDICAL DECISION MAKIN23 year old F with hx of uterine fibroids presents with menorrhagia. H/H today is 10 and 31, no evidence of severe anemia. She does not meet criteria for transfusion or admission at this time. Her vital signs are normal and she is not symptomatic. I reviewed her records from one month ago and discussed case with OBGYN collections clerk, Dr. Viramontes who agreed that patient is stable and can be discharged home with outpatient OBGYN follow up. I discussed this with patient at bedside who agreed with plan. She will make an appointment with her OBGYN tomorrow. She felt better status post fluids and morphine. Strict return pre cautions discussed. PRESCRIPTIONS: None SPECIALIST FOLLOW UP RECOMMENDED: OBGYN Patient has been advised to follow up with primary care in 1-2 days. Departure Diagnosis: Primary Impression: Excessive vaginal bleeding Condition: Stable Patient Instructions: What Are Fibroids? Referrals: [facility] (PCP) Additional Instructions: You must follow-up with your outreach director sometime this week for your Depo shot. In the meantime, you can take [id number] Motrin for your pain, if you start to experience dizziness, lightheadedness, continued excessive bleeding, return here. Otherwise see your PULMONOLOGY PHYSICIAN as discussed. JEAN CARLOS CORONA PA-C Mar 04, 2019 19:54
== END 2019-03-04 17:09 | disposition home or self-care (01) ==
LOC: FTE 13:48
DX: N93.9 Abnormal uterine and vaginal bleeding, unspecified (principal)
CPT/HCPCS: 36415; 84702; 85025; 96361; 96374; 96375; J2270; J2405; J7030; Z7502